=== PATIENT | male | born 1965 | race African-American/Black ===

== ENCOUNTER 2018-02-26 09:25 | Day surgery (SDC) | payer BC ==
[2018-02-23 12:17] VITALS: BMI 30.4
[2018-02-26] MEDS ORDERED: DEXAMETHASONE SOD PHOSPHATE/PF 10 MG/ML SDV ONE (12:11)
[2018-02-26] MEDS ORDERED: MIDAZOLAM HCL 2 MG/2 ML SINGLE DOSE VIAL ONE ×2 (12:11→12:58)
[2018-02-26] MEDS ORDERED: ROPIVACAINE HCL 0.5% 30ML VIAL ONE (12:12)
[2018-02-26] MEDS ORDERED: VANCOMYCIN 1,000 MG VIAL (RESTRICTED TO ID ONLY) ONE (12:20)
[2018-02-26] MEDS ORDERED: BUPIVACAINE HCL/EPINEPHRINE/PF 30 ML VIAL IJ ONE (12:20)
[2018-02-26] MEDS ORDERED: ONDANSETRON 4 MG/2 ML VIAL IVPUSH PRN (12:55)
[2018-02-26] MEDS ORDERED: oxyCODONE HCL 5 MG TABLET PO PRN ×2 (12:55)
[2018-02-26] MEDS ORDERED: PROPOFOL 20 ML ONE (12:58)
[2018-02-26] MEDS ORDERED: LACTATED RINGERS SOLUTION 1,000 ML IV SCH (13:00)
[2018-02-26] MEDS ORDERED: DESFLURANE GAS 240 ML BOTTLE IH ONE (13:32)
[2018-02-26 17:00] VITALS: BP 135/65; PULSE 90; TEMP 97.9
--- NOTE | 2018-02-28 22:07 | OP ---
DATE OF OPERATION: 02/26/2018 SURGEON: Elliot Montelongo M.D. MORTUARY TECHNICIAN: Leslie Henley PREOPERATIVE DIAGNOSIS: 1. Right knee quadriceps tendon tear. 2. Right knee cartilage injury. 3. Right knee synovitis. POSTOPERATIVE DIAGNOSIS: 1. Right knee quadriceps tendon tear. 2. Right knee cartilage injury. 3. Right knee synovitis. PROCEDURE: 1. Right knee open quadriceps tendon repair. 2. Right knee arthroscopy with chondroplasty and abrasion plasty. 3. Right knee arthroscopy synovectomy. FINDINGS: 1. Minimal degeneration posterior horn medial lateral meniscus. 2. Antegrade 1-2 cartilage injury medial femoral condyle. 3. ACL and PCL intact. 4. Antegrade 2 cartilage patellar tendon. 5. Superior pole undersurface grade 4 changes patella with central grade 2-3 changes patellofemoral trochlear. 6. Full-thickness quadriceps tendon rupture with avulsion off superior pole patella. PROCEDURE: Informed consent was obtained. The patient came to the operating room, where the lower extremity was prepped and draped in a sterile fashion. A tourniquet was placed on the upper thigh, but not inflated. Using standard arthroscopic technique, a lateral incision and portal was made to allow for introduction of the camera into the suprapatellar bursa. This was then taken to the medial joint line, where under direct visualization, a medial incision and portal was made. Excessive synovium noted in the medial, lateral and patellofemoral and notch area was removed by an upbiter, shaver and Bovie cautery. This was found to bring in inflammatory tissue into the joint surface, a source of pain and dysfunction. Probing of the medial and lateral meniscus found tears, as described in the findings. These were removed with the upbiter and shaver and taken back to a stable rim. Grade 2 to 3 degenerative changes were treated with a chondroplasty, removing all flaking surfaces with low-setting Bovie along the periphery to prevent further flaking. Grade 4 changes, as noted, were treated with an abrasoplasty, creating a bleeding surface at the bone/cartilage interface. Aggressive debridement with shaver/kingsley created bleeding surface. Mirco fracture also done when indicated in findings All areas of the knee were once again reexamined. The knee was then drained and a single suture was placed in all portals. A sterile dressing was placed and the patient was transferred to the recovery room without complication. ADDENDUM: After the arthroscopy was performed, an incision was made starting 8 cm proximal to distal pole patella, taken to the mid pole patella. Tendon was identified and noted to be avulsed centrally off the quadriceps tendon. Soft tissue was removed from the superior pole of the patella, taken down to bare bone, where a rongeur and small bur were used to create a bleeding surface. Two number 5 Ethibonds were used in interlocking [place] stitch into the quadriceps tendon. Three drill holes were placed through the mid portion of the patella and brought out the anterior surface. This allowed for the 4 strands to be brought through the 3 holes and were tied over bone bridges. This brought the quadriceps tendon to reactive bleeding bone created at the superior pole of the patella. This was secured over the bone bridges, and then oversewn with number 2 Fiberwire [id number] interrupted sutures. Wound was irrigated copiously throughout the steps and closed with 0 Vicryl, 2-0 Vicryl, and gokul. Sterile dressing and splint were placed and patient was transferred to the recovery room without complication. ELLIOT MONTELONGO M.D. [id number]
--- NOTE | 2018-03-02 15:35 | PATH ---
Surgical Pathology Report Patient Name: SONALI HARTMAN Med. Rec. #: [id number] /Age/Gender: 1965 (Age: 52) / M Account: [id number] Location: [facility] AMBULATORY Taken: 02/26/2018 Received: 02/26/2018 Reported: 03/02/2018 Physicians: Elliot Ge M.D. Specimen(s) Received RIGHT QUAD TENDON Clinical History Torn right quad tendon Final Diagnosis SOFT TISSUE, RIGHT QUADRICEP TENDON, EXCISION: ORGANIZED FIBROUS CONNECTIVE TISSUE WITH HEMORRHAGE AND ASSOCIATED GRANULATION TISSUE CONSISTENT WITH HEALING INJURY. Electronically Signed Dyu Maxwell M.D. Gross Description Received in formalin labeled "right quad tendon," is a 3.5 x 1.6 x 1.6 cm cruz, irregular portion of hemorrhagic fibrous tissue with attached fat. Visual Display Manager sections are submitted in one cassette. /03/01/2018 saudi/03/01/2018
== END 2018-02-26 17:05 | disposition home or self-care (01) ==
LOC: FASU 09:25
PROVIDERS: ATTEND Orthopaedic Surgery
PROC: 0LQL0ZZ Repair Right Upper Leg Tendon, Open Approach (ICD-10-PCS; principal; 2018-02-26 13:26)
PROC: 0SBC4ZZ Excision of Right Knee Joint, Percutaneous Endoscopic Approach (ICD-10-PCS; 2018-02-26 13:26)
DX: S76.111A Strain of right quadriceps muscle, fascia and tendon, initial encounter (principal); S83.8X1A Sprain of other specified parts of right knee, initial encounter; M65.861 Other synovitis and tenosynovitis, right lower leg; X58.XXXA Exposure to other specified factors, initial encounter; Y93.89 Activity, other specified; Y92.89 Other specified places as the place of occurrence of the external cause
CPT/HCPCS: 82962; 88304-TC